=== PATIENT | female | born 1940 | race Caucasian/White ===

== ENCOUNTER 2021-03-30 13:33 | Emergency (ER) | payer MEDICARE ==
[~2021-03-30] VITALS: Ht 165.1 cm; Wt 83.9 kg
[2021-03-30 14:48] LABS: BASOPHILS # (AUTO) 0.1 (0.0-0.1); BASOPHILS % 0.7 % (0.0-1.0); EOSINOPHILS % 0.4 % (0.0-6.0); HEMATOCRIT 41.9 % (34.2-44.1); HEMOGLOBIN 13.6 g/dL (12.0-16.0); LYMPHOCYTES % 9.5 % (18.0-39.1); MEAN CORPUSCULAR HEMOGLOBIN 29.4 pg (28-32); MEAN CORPUSCULAR HGB CONC 32.5 g/dL (31-35); MEAN CORPUSCULAR VOLUME 90.7 fL (81-99); MONOCYTES # (AUTO) 0.5 (0.2-0.8); MONOCYTES % 4.5 % (4.4-11.3); NEUTROPHILS # (AUTO) 8.7 (2.1-6.9); NEUTROPHILS % 84.5 % (38.7-80.0); PLATELET COUNT 194 x10e3/uL (140-360); RED BLOOD COUNT 4.62 x10e6/uL (3.6-5.1); RED CELL DISTRIBUTION WIDTH 13.2 % (11.7-14.4)
[2021-03-30 15:06] LABS: ALBUMIN 3.9 g/dL (3.5-5.0); ALBUMIN/GLOBULIN RATIO 1.2 (0.8-2.0); ANION GAP 11.8 mmol/L (8-16); CALCIUM 9.1 mg/dL (8.4-10.2); CREATININE, SERUM 0.98 mg/dL (0.57-1.11); POTASSIUM 3.8 mmol/L (3.5-5.1)
[2021-03-30 15:13] LABS: CREATINE KINASE MB 0.8 ng/mL (0-5.0)
[2021-03-30] MEDS ORDERED: SODIUM CHLORIDE 0.9% 100 ML ONE (17:43)
[2021-03-30] MEDS ORDERED: IOPAMIDOL 370 MG/ML 200 ML INFUS..BTL INJ ONE (17:44)
== END 2021-03-30 18:30 | disposition home or self-care (01) ==
LOC: ER 14:35
DX: I10 Essential (primary) hypertension (principal); I71.2 Thoracic aortic aneurysm, without rupture
CPT/HCPCS: 36415; 70450; 71045; 71275; 74174; 80053; 82550; 82553; 84484; 85025; 99284; J7050; Q9967